=== PATIENT | female | born 1995 | race Caucasian/White ===

== ENCOUNTER 2021-09-10 12:38 | Emergency (ER) | payer OTHER, SELFPAY ==
--- NOTE | ~2021-09-10 | XR_ITS ---
EXAMINATION: XR forearm LT 2V DATE: 09/10/2021 13:02 INDICATION: Left forearm pain. Fall. TECHNIQUE: 2 views of left forearm were obtained. COMPARISON: None. FINDINGS: There is a fracture of radial head with up to 2 mm impaction of the radial 2/3 of the artic ular surface. Joint spaces are normal. IMPRESSION: 1. Radial head fracture. Reviewed, dictated and finalized at location A. MAKER COMPANION IMPRESSION: 1. Radial head fracture.
--- NOTE | ~2021-09-10 | XR_ITS ---
EXAMINATION: XR wrist LT min 3V DATE: 09/10/2021 13:02 INDICATION: Left forearm pain. Fall on ice. TECHNIQUE: 4 views of left wrist were obtained. COMPARISON: None. FINDINGS: Bone alignment is normal. No fracture. Joint spaces are well maintained. IMPRESSION: 1. Normal left wrist. Reviewed, dictated and finalized at location A. ER CARE SOCIAL WORKER IMPRESSION: 1. Normal left wrist.
--- NOTE | 2021-09-10 12:52 | ED.UPPEXIN ---
HPI - Extremity Injury (Upper) General Chief Complaint: Extremity Injury, Upper Stated Complaint: left wrist and arm injury Time Seen by Provider: 09/10/21 13:18 Source: patient and RN notes reviewed Mode of arrival: ambulatory Limitations: no limitations History of Present Illness HPI narrative: 26-year-old female presents concern for left wrist and elbow pain. Reports she slipped on the ice just prior to arrival catching herself with her left upper extremity. Reports upper arm pain 7/10. Denies decreased sensation, strength or range of motion in the left hand. MD complaint: injury to: left and elbow Related Data Home Medications Medication Instructions Recorded Confirmed bupropion HCl [Wellbutrin] 100 mg PO BID 09/10/21 09/10/21 buspirone [BuSpar] 5 mg PO BID 09/10/21 09/10/21 meloxicam 7.5 mg PO DAILY 09/10/21 09/10/21 Allergies Allergy/AdvReac Type Severity Reaction Status Date / Time No Known Allergies Allergy Verified 09/10/21 12:56 Review of Systems Review of Systems: CONSTITUTIONAL: Denies malaise, chills, sweats, or fever. CARDIOVASCULAR: Denies chest pain, palpitations, or edema. RESPIRATORY: Denies cough or dyspnea. SKIN: Denies rash or itching, bruising, redness MUSCULOSKELETAL: Reports left arm pain, swelling NEUROLOGIC: Denies numbness, weakness All systems reviewed & are unremarkable except as noted in HPI and below PMFSH Comments At time of signature, agree with nursing past medical, surgical, social and family history. There is no relevant family history pertinent to the presenting complaint Exam Narrative: GENERAL: Well-appearing, well-nourished, and in no acute distress. HEAD: Normocephalic, atraumatic. EYES: PERRLA, conjunctivae clear NECK: Supple. CHEST: Speaks in full sentences. No respiratory distress. HEART: Regular rate and rhythm. Normal and equal peripheral pulses. EXTREMITIES: Left upper extremity has grossly normal sensation, limited range of motion. Mild elbow edema, no ecchymosis. 5/5 strength with wrist and digit flexion and extension. Normal sensation with sensitivity to light touch and pain. Elbow tenderness. No open wounds, no skin tenting, no devitalized tissue or atrophy, no trophic changes, no obvious deformity, alignment normal, nearby joints and structures intact. Distal pulses palpable and equal bilaterally, skin warm, dry, pink. Capillary refill less than 3 seconds. SKIN: Warm, dry, no rash. NEURO: Alert and oriented x3. PSYCH: Normal mood and affect Course Course Emergency Course: Patient is aware of diagnosis, understands and agrees to treatment plan. Anticipatory guidance given. Patient agrees to follow-up as directed and is aware of reasons to seek care at the emergency department. Portions of this record may have been created with voice recognition software Level of Care: Express Care Visit Vital Signs Vital signs: Reviewed. Procedures Orthopedic Splinting/Casting Injury #1: Splinting/Casting Date: 09/10/21 Splinting/Casting Time: 13:31 Side: left Upper Extremity Injury Location: elbow Splint: customized in ED OCL: long arm Pre-Procedure Neuro Vascular Exam: normal Post-Procedure Neuro Vascular Exam: normal Other Orthopedic Equipment: other (sling) Additional Comments: Splint applied by satellite installation technician MDM - Extremity Injury (Upper) MDM Narrative Medical decision making narrative: Patients injury and pain is consistent with musculoskeletal etiology. No signs of neurological or vascular compromise on exam. Compartments and tissues are soft without signs of compartment syndrome. Pain is felt appropriate for further evaluation on an outpatient basis. Differential Diagnosis Differential diagnosis: Likely sprain and strain of wrist, fracture of wrist, fracture of humerus and other (Radial fracture) Imaging Data Radiologist's impression: EXAMINATION: XR wrist LT min 3V DATE: 09/10/2021 13:02 INDICATION
[2021-09-10 12:54] VITALS: BP 125/76; PULSE 97; RESP 16; TEMP 36.9; O2SAT 100
== END 2021-09-10 13:40 | disposition home or self-care (01) ==
PROVIDERS: Emergency Provider Nurse Practitioner; PCP Family Medicine
DX: S52.125A Nondisplaced fracture of head of left radius, initial encounter for closed fracture (principal); W00.0XXA Fall on same level due to ice and snow, initial encounter
CPT/HCPCS: 29105; 73090; 73110; 99214; A4565; G0463

== ENCOUNTER 2022-07-06 06:37 | Observation (INO) | payer OTHER, SELFPAY ==
[2022-07-06] VITALS (21 sets, daily range): BP systolic 94–122; BP diastolic 44–80; PULSE 86–114; RESP 16; TEMP 36.6–37.1; BMI 26.6
--- NOTE | ~2022-07-06 | US_ITS ---
US OB limited 07/06/2022 08:07 Indication: Vaginal spotting. Placental check. Procedure: High-resolution Limited obstetrical ultrasound Comparison: No prior studies for comparison. Findings: There is a single living intrauterine in breech presentation. Placenta is anterio r and low lying measuring 3.4 cm to the cervix. No evidence for placenta previa. The placenta is corbin sly normal, without suggestion of placenta abruption. However, ultrasound is not diagnostic of abrup tion since acute hemorrhage can be isoechoic to be placenta. Recommend clinical correlation. Amnioti c fluid is subjectively normal. Impression: 1: Single living intrauterine in breech presentation. 2: Anterior low lying placenta measuring 3.4 cm to the cervix. No evidence for placenta previa or abr uption. Reviewed, dictated and finalized at location A. Impression: 1: Single living intrauterine in breech presentation. 2: Anterior low lying placenta measuring 3.4 cm to the cervix. No evidence for placenta previa or abruption.
--- NOTE | 2022-07-06 07:07 | OBADM ---
This patient, Nandini Reynolds, admitted to the OB room 113 for observation for vaginal spotting. Patient/family oriented to hospital policies and general routines including ID bracelet, bed and alarms, visiting hours, pain management, procedures, bathroom and other care routines, personal items, smoking policy, room service/diet, and visiting hours. Patient/Family are encouraged to report perceived risks to care and to ask questions if they do not understand what they are told or what they should do.
--- NOTE | 2022-07-06 08:42 | PM.IMHP ---
H&P: HPI History of Present Illness Date/Time: 07/06/22 08:42 Chief Complaint: vaginal bleeding Narrative: 27-year-old 1 at 29 weeks gestation presenting for vaginal bleeding. She has had some cramping and some vaginal bleeding. She has a history of placenta previa and low-lying placenta. There was allegedly some resolution of the low-lying placenta. Was measured at [address] from the internal os 1 week ago. She is not feeling any pressure or contractions per se. She denies any nausea, vomiting, fever, chills. She denies any chest pain shortness of breath. Review of Systems Review of Systems: All systems reviewed & are unremarkable except as noted in HPI and below Constitutional: Constitutional: Denies chills, Denies fatigue, Denies fever(s) and Denies weakness Eyes: Eyes: Denies blurry vision, Denies change in vision, Denies loss of peripheral vision, Denies loss of vision, Denies other visual disturbances and Denies eye pain ENT: Denies vertigo, Denies dizziness, Denies hearing loss, Denies mouth pain, Denies nasal obstruction, Denies neck mass and Denies neck pain Cardiovascular: Cardiovascular: Denies chest pain, Denies diaphoresis, Denies syncope, Denies leg edema and Denies dyspnea Respiratory: Respiratory: Denies chest congestion, Denies cough, Denies hemoptysis, Denies dyspnea and Denies wheezing Gastrointestinal: Gastrointestinal: Denies abdominal pain, Denies constipation, Denies diarrhea, Denies nausea and Denies vomiting Genitourinary: Genitourinary: Denies hematuria, Denies change in libido, Denies nocturia, Denies genital lesions, Denies flank pain and Denies urinary urgency Musculoskeletal: Musculoskeletal: Denies abnormal gait, Denies back pain, Denies myalgias, Denies arthralgias, Denies joint swelling, Denies muscle weakness and Denies neck pain Integumentary/Breasts: Skin/Breast: Denies swelling, Denies breast pain, Denies breast mass, Denies dry skin, Denies nipple discharge, Denies unusual bruising and Denies jaundice Neurologic: Denies Neuro-related abnormal movements, Denies Abnormal speech present, Denies abnormal gait, Denies behavioral changes, Denies confusion, Denies vertigo, Denies dizziness, Denies syncope, Denies loss of vision, Denies memory loss, Denies convulsions and Denies weakness Psychiatric: Psychiatric: Denies abnormal sleep pattern, Denies behavioral changes, Denies change in libido, Denies confusion, Denies depression, Denies anhedonia and Denies memory loss Endocrine: Endocrine: Reports no additional endocrine complaints, Denies change in libido and Denies fatigue Hematologic/Lymphatic: Hematologic/Lymphatic: Reports no additional hematologic/lymphatic complaints Allergic/Immunologic: Allergic/Immunologic: Reports no additional allergic/immunologic complaints and Denies wheezing Meds Home Medications and Allergies Home Medications Medication Instructions Recorded Confirmed Type ferrous sulfate 142 mg (45 mg 142 mg PO DAILY 07/06/22 07/06/22 History iron) tablet,extended release (Slow Fe) omeprazole 10 mg capsule,delayed 10 mg PO DAILY 07/06/22 07/06/22 History release vit no.95-ferrous 1 tablet PO DAILY 07/06/22 07/06/22 History fumarate 28 mg-folic acid 800 mcg tablet () Allergies Allergy/AdvReac Type Severity Reaction Status Date / Time No Known Allergies Allergy Verified 09/10/21 12:56 Vital Signs Vital Signs - 24 hr 07/06/22 07:06 07/06/22 07:06 07/06/22 07:07 Temperature 98.8 F Pulse Rate 111 H Respiratory Rate 16 Blood Pressure 116/68 Oxygen Delivery Room Air 07/06/22 07:15 07/06/22 07:30 Temperature Pulse Rate 108 H 104 H Respiratory Rate Blood Pressure 117/78 109/74 Oxygen Delivery Exam Const: General: cooperative, healthy appearing, comfortable and no acute distress; No confusion Orientation/consciousness: oriented to person, oriented to place, oriented to time and No con
[2022-07-06] MEDS: TERBUTALINE SULFATE 1 MG/ML VIAL 0.25 MG SUB-Q ×2 (09:58→15:55)
[2022-07-06 10:27] LABS: Appearance Urine Clear (Clear); Bilirubin Urine Negative (Negative); Blood Urine 2+ (Negative); Color Urine Yellow (Yellow); Glucose Urine UA Negative (Negative); Ketones Urine Negative (Negative); Leukocyte Esterase Ur Negative LEU/UL (Negative); Nitrate Urine Negative (Negative); Protein Urine Negative (Negative); Urobilinogen Urine 0.2 mg/dL (<2.0); pH Urine 6.5 (5.0-9.0)
[2022-07-06 10:37] LABS: Mucus Urine Rare /lpf; RBC Urine 0-2 /hpf (0-2); Squamous Epithelial Cell Urine Rare /hpf (Few); WBC Urine 0-3 /hpf
[2022-07-06 10:41] LABS: Add Urine Microscopic? YES
[2022-07-06] MEDS: NIFEdipine 30 MG TAB.ER.24 PO ×2 (13:00→16:32)
[2022-07-06] MEDS: ACETAMINOPHEN 500 MG TABLET 1000 MG PO (15:37)
[2022-07-07 04:58] VITALS: BP 115/72; PULSE 97; RESP 17; TEMP 36.2
[2022-07-07 06:30] VITALS: RESP 17; TEMP 36.5
[2022-07-07 06:38] VITALS: BP 120/66; PULSE 100
--- NOTE | 2022-07-07 07:16 | PC.NURSE ---
Patient ambulated to restroom and voided. No blood noted at this time.
--- NOTE | 2022-07-07 08:06 | PM.OBPNVD ---
OB - PN: Subj Subjective Date/time seen: 07/07/22 08:06 No perceptible contractions. Very small, light bleeding, said to be dark by nurses. Good movement. OB - PN: Obj Data Labs Labs: Laboratory Results - last 24 hr 07/06/22 10:17 Urine Color Yellow Urine Appearance Clear Urine pH 6.5 Ur Specific [place] 1.020 Urine Protein Negative Urine Glucose (UA) Negative Urine Ketones Negative Ur Blood (Man) 2+ H Urine Nitrate Negative Urine Bilirubin Negative Urine Urobilinogen 0.2 Leukocyte Esterase Rfl Negative Urine RBC 0-2 Urine WBC 0-3 Ur Squamous Epith Cells Rare Urine Mucus Rare Imaging Radiologist's impression: Impressions Obstetrics Ultrasound 07/06/22 08:36 Impression: 1: Single living intrauterine in breech presentation. 2: Anterior low lying placenta measuring 3.4 cm to the cervix. No evidence for placenta previa or abruption. OB - PN A/P Assessment and Plan (1) Low lying placenta with hemorrhage in third trimester, antepartum: Code(s): O44.53 - Low lying placenta with hemorrhage, third trimester Status: Acute Plan 27-year-old 1 at 29 weeks gestation with 3rd trimester bleeding and low-lying placenta. She has been franky and bleeding intermittently. There has been Resolution of bleeding and contractions. she has been observed for approximately 24 hours. She will be discharged with precautions. She will follow-up in the office today. Time Spent With Patient Time: Total time spent is greater than 50% in coordination of care (as documented) at patient's floor/unit and/or counseling patient: Exam Const: General: cooperative, healthy appearing, comfortable and no acute distress; No confusion Orientation/consciousness: oriented to person, oriented to place, oriented to time and No confusion HENMT: Head: normal to inspection Ears: external ears normal Face/Nose/Sinus: Normal external nose present and normal facial exam Face and sinus: normal facial exam Eyes: General: appearance normal, both eyes and all related structures Neck: Neck: normal visual inspection, trachea midline and supple Resp: Auscultation: clear to auscultation bilaterally, no crackles, no rales, no rhonchi and no wheezes Cardio: Rate: regular rate Rhythm: regular rhythm Heart sounds: no click, no murmurs and no rubs GI: GI Palp: No abdominal tenderness, No Soft to palpation, No Tenderness to palpation present (GI) and No Palpable mass present Auscultation: normal bowel sounds Skin: General skin exam: normal color and no rashes or lesions noted Neuro: General: oriented to person, oriented to place, oriented to time and No confusion Speech: No Abnormal speech present Extrem: General: normal to inspection, no joint enlargement, no clubbing, cyanosis or edema, no pedal edema and no calf tenderness Psych: Appearance: grossly normal Mental Status: mental status grossly normal Speech and movement: Normal speech and movement present
--- NOTE | 2022-07-07 08:21 | PC.NURSE ---
Dr. Cerda at bedside to discuss patient's plan of care. Discharge orders placed. Patient agrees with POC.
--- NOTE | 2022-08-01 10:59 | P.PNOB_ITS ---
OB - Triage/Final Diagnosis Visit Information Comments/Additional reasons for admission: I have assessed the risk for this patient, Nandini Reynolds, and determined that she would benefit from observation care. Evaluation Laboratory results: Laboratory Tests 07/06/22 10:17 Urine Color Yellow Urine Appearance Clear Urine pH 6.5 Ur Specific [place] 1.020 Urine Protein Negative Urine Glucose (UA) Negative Urine Ketones Negative Ur Blood (Man) 2+ H Urine Nitrate Negative Urine Bilirubin Negative Urine Urobilinogen 0.2 Leukocyte Esterase Rfl Negative Urine RBC 0-2 Urine WBC 0-3 Ur Squamous Epith Cells Rare Urine Mucus Rare Final Diagnosis (1) Low lying placenta with hemorrhage in third trimester, antepartum: Code(s): O44.53 - Low lying placenta with hemorrhage, third trimester Status: Acute
== END 2022-07-07 08:35 | disposition home or self-care (01) ==
PROVIDERS: Admitting Provider Obstetrics & Gynecology; PCP Family Medicine; Visit Provider Obstetrics & Gynecology
DX: O44.53 Low lying placenta with hemorrhage, third trimester (principal); Z3A.29 29 weeks gestation of pregnancy
CPT/HCPCS: 76815; 81001; 96372; A9270; G0378; G0379; J3105

== ENCOUNTER 2022-07-30 05:56 | Observation (INO) | payer OTHER, SELFPAY ==
[2022-07-30] VITALS (7 sets, daily range): BP systolic 118–124; BP diastolic 70–80; PULSE 74–82; RESP 16; TEMP 36.8–36.9; O2SAT 98–100; BMI 27.5
--- NOTE | ~2022-07-30 | US_ITS ---
US OB limited w BPP DATE: 07/30/2022 07:33 INDICATION: Evaluate well-being, placenta. Vaginal bleeding. TECHNIQUE: Real-time imaging and Doppler analysis COMPARISON: 08/02/2022 obstetrical ultrasound, limited FINDINGS: Live single intrauterine gestation, fetus in longitudinal lie, breech presentation with fet al heart rate of 149 bpm. Anterior placenta. Subjectively normal amount of amniotic fluid. BIOPHYSICAL PROFILE reported by field service technician poultry: breathin out of 2 movement: 2 out of 2 tone: 2 out of 2 Amniotic fluid pocket: 2 out of 2 Total score: 8 out of 8 IMPRESSION: Normal biophysical profile score of 8 out of 8 Breech presentation Reviewed, dictated and finalized at [facility]. Reviewed, dictated and finalized at location A. A CENTER SPECIALIST
--- NOTE | 2022-07-30 06:15 | PC.NURSE ---
At 0609, I spoke with Dr. Urban regarding patient's bleeding. Verbal orders received for NST, BPP, and ultrasound for wellbeing and placenta.
--- NOTE | 2022-07-30 06:19 | LDADM ---
This patient, Nandini Reynolds, was admitted to OB Post 117 on 07/30/22 at 05:56. Plans for labor, pain management and were discussed with patient. Patient/family oriented to hospital policies and general routines including ID bracelet, bed and alarms, visiting hours, pain management, procedures, bathroom and other care routines, personal items, smoking policy, room service/diet and guest tray routines, infant security routines, and visiting hours. Patient/Family are encouraged to report perceived risks to care and to ask questions if they do not understand what they are told or what they should do. See OBIX for further documentation.
--- NOTE | 2022-07-30 08:59 | PC.NURSE ---
Spoke with Dr. Urban at 0850 regarding patient's ultrasound results. Dr. Urban coming in to perform speculum exam.
--- NOTE | 2022-07-30 09:55 | PC.NURSE ---
Dr. Urban at bedside. Sterile speculum exam performed. No source of bleeding found. Cervical exam performed. Cervix is closed and 60% effaced. Orders to keep patient overnight to monitor bleeding, receive Celestone injections x2, and FFN test tomorrow (07/31/22) at 0945. Patient has no questions at this time.
--- NOTE | 2022-07-30 09:59 | PM.IMHP ---
H&P: HPI History of Present Illness Date/Time: 07/30/22 09:59 Chief Complaint: bleeding Narrative: Nandini is a 27yo G1 at 32.6 who presented with an episode of BRB that soaked a pantiliner. NO intercourse or strenuous activity. Now just some mucousy bloody discharge overnight. Denies contractions, leaking, pain. Normal FM. She previously had marginal previa, then low lying placenta, which resolved weeks ago. She had another episode of bleeding that was associated with contractions she did not feel and she was on procardia for a while, is not anymore. NO contractions on toco or palpated by RN or noted by pt overnight. her is compicated by anxiety and anemia. Review of Systems Review of Systems: All systems reviewed & are unremarkable except as noted in HPI and below Meds Home Medications and Allergies Home Medications Medication Instructions Recorded Confirmed Type ferrous sulfate 142 mg (45 mg 142 mg PO DAILY 07/06/22 07/30/22 History iron) tablet,extended release (Slow Fe) omeprazole 10 mg capsule,delayed 10 mg PO DAILY 07/06/22 07/30/22 History release vit no.95-ferrous 1 tablet PO DAILY 07/06/22 07/30/22 History fumarate 28 mg-folic acid 800 mcg tablet () Allergies Allergy/AdvReac Type Severity Reaction Status Date / Time No Known Allergies Allergy Verified 07/30/22 06:22 Vital Signs Vital Signs - 24 hr 07/30/22 06:05 07/30/22 06:06 07/30/22 06:11 Temperature 98.5 F Pulse Rate 78 Respiratory Rate 16 Blood Pressure 124/80 Pulse Oximetry 98 100 100 Oxygen Delivery 07/30/22 06:16 07/30/22 06:19 Temperature Pulse Rate Respiratory Rate Blood Pressure Pulse Oximetry 100 Oxygen Delivery Room Air Exam Const: General: no acute distress Resp: Effort & Inspection: normal respiratory effort Auscultation: clear to auscultation bilaterally Cardio: Rate: regular rate Rhythm: regular rhythm GI: GI Palp: Yes Soft to palpation Other: nontender, gravid : Other: on SSE, some bloody mucus present in vault and cleared out with swabs. cervix visually closed but appears soft. Not friable. digitally cervix 0-0.5/60/-3 Extrem: General: normal to inspection Assessment and Plan Assessment and plan (1) Antepartum bleeding, third trimester: Code(s): O46.93 - Antepartum hemorrhage, unspecified, third trimester Status: Acute Plan cervix closed, but soft and effaced. given bleeding, with normal US and no other cause of bleeding found, moderately concerned for potential for labor. Will do celestone, monitor bleeding in house, and do FFN tomorrow am. Discussed POC with pt and . Questions answered, support given. FHT category 1, NST q shift unless new episode of bleeding. IV start if new episode of bleeding.
[2022-07-30] MEDS: BETAMETHASONE SOD PHOS/ACETATE 30 MG/5 ML VIAL 12 MG IM (10:06)
[2022-07-30] MEDS: DOCUSATE SODIUM 100 MG CAPSULE PO (12:02)
[2022-07-30] MEDS: ACETAMINOPHEN 500 MG TABLET 1000 MG PO ×2 (12:02→18:22)
[2022-07-31] VITALS (7 sets, daily range): BP systolic 114–121; BP diastolic 66–77; PULSE 77–85; TEMP 36.7; O2SAT 95
--- NOTE | 2022-07-31 09:06 | PM.OBPNVD ---
OB - PN: Subj Subjective Date/time seen: 07/31/22 09:06 Narrative: NO active bleeding since episode night before last. brown/pink spotting only. no contractions, mild back pain. baby moving well. OB - PN A/P Assessment and Plan (1) Antepartum bleeding, third trimester: Code(s): O46.93 - Antepartum hemorrhage, unspecified, third trimester Status: Acute Plan second celestone today FFN today if pos, will check cervix, if same may DC home. discussed POC with pt. FHT category 1 Time Spent With Patient Time: Total time spent is greater than 50% in coordination of care (as documented) at patient's floor/unit and/or counseling patient: Exam Const: General: no acute distress Resp: Effort & Inspection: normal respiratory effort GI: Inspection: normal to inspection Other: nontender, gravid, soft
[2022-07-31] MEDS: BETAMETHASONE SOD PHOS/ACETATE 30 MG/5 ML VIAL (09:58)
[2022-07-31 10:50] LABS: Fetal Fibronectin Positive
--- NOTE | 2022-07-31 10:55 | PC.NURSE ---
Dr Urban notified of positive FFN. Will be over to check patient around noon.
--- NOTE | 2022-08-02 07:16 | PM.OBTRLD ---
OB - Triage/Final Diagnosis Visit Information Comments/Additional reasons for admission: I have assessed the risk for this patient, Nandini Reynolds, and determined that she would benefit from observation care. Evaluation Laboratory results: Laboratory Tests 07/31/22 09:56 Fibronectin Positive Final Diagnosis (1) Antepartum bleeding, third trimester: Code(s): O46.93 - Antepartum hemorrhage, unspecified, third trimester Status: Acute
== END 2022-07-31 13:04 | disposition home or self-care (01) ==
PROVIDERS: Admitting Provider Obstetrics & Gynecology; PCP Family Medicine; Visit Provider Obstetrics & Gynecology
DX: O46.93 Antepartum hemorrhage, unspecified, third trimester (principal); Z3A.32 32 weeks gestation of pregnancy
CPT/HCPCS: 59025; 76815; 76819; 82731; 96372; A9270; G0378; G0379; J0702

== ENCOUNTER 2022-08-07 14:13 | Inpatient (IN) | payer OTHER, SELFPAY ==
[2022-08-07 14:58] VITALS: BP 128/81; PULSE 95
--- NOTE | 2022-08-07 15:17 | OBADM ---
This patient, Nandini Reynolds, admitted to the OB room OB Post 113 for observation. Patient/family oriented to hospital policies and general routines including ID bracelet, bed and alarms, visiting hours, pain management, procedures, bathroom and other care routines, personal items, smoking policy, room service/diet, and visiting hours. Patient/Family are encouraged to report perceived risks to care and to ask questions if they do not understand what they are told or what they should do.
--- NOTE | 2022-08-07 15:21 | PC.NURSE ---
Pt here for extended monitoring. Pt has been evaluated recently for bleeding and had an ultrasound in the office today which showed a partial abruption, per Dr. Urban. Pt states she was in 07/06 with bleeding, more than spotting with contractions. She was given procardia and terbutaline. She was here overnight and sent home with a procardial prescription. Also, had a history of low lying placenta at that time. 07/26 she had an OB appt. It was noted on ultrasound she no longer had a low lying placenta and Dr. Urban stopped her procardia prescription, telling her she didn't think she was having contractions. On one of these visits to the hospital she was also given celestone. 07/30 she was back in the hospital with bleeding and stayed over night. 08/06 she started spotting and thought she was having some contractions. She stated she didn't think she was having many contractions. Stated she had some spotting this morning. She has some low back pain. Currently does not have any spotting upon admission. Denies feeling contractions although they are on the monitor. She also has not eaten since breakfast. She also stated the baby is breech.
--- NOTE | 2022-08-07 19:07 | PC.NURSE ---
[address] Urban updated on patient status. [facility] reviewed. Orders received for Colace BID per patient request. Will continue to monitor and call if bright red vaginal bleeding or contractions or any other concerns. Antoinette Grewal RN
[2022-08-07] MEDS: DOCUSATE SODIUM 100 MG CAPSULE PO (21:07)
[2022-08-07 21:09] VITALS: BP 128/77; PULSE 78; TEMP 38.1
[2022-08-07] MEDS: ACETAMINOPHEN 500 MG TABLET 1000 MG PO (21:09)
--- NOTE | 2022-08-07 21:24 | PC.NURSE ---
[id number] Urban. Updated on pt status, pt currently with temp of 100.4. Tylenol 1000mg PO given. No new orders received. Will continue to monitor and call if questions or concerns or temp greater than 100.[address] Urban. Antoinette Grewal RN
[2022-08-07 22:06] VITALS: TEMP 37.5
--- NOTE | 2022-08-07 23:08 | PC.NURSE ---
[id number] Urban [facility] reviewed. Order received to insert IV, LR at 100mL/hr continuous. Will continue to monitor, will call with questions or concerns. Antoinette Grewal RN
[2022-08-07] MEDS: LACTATED RINGERS 1,000 ML 100 ML IV CONT (23:30)
[2022-08-08] VITALS (7 sets, daily range): BP systolic 122–136; BP diastolic 74–86; PULSE 63–86; RESP 18; TEMP 37.2–37.4
--- NOTE | 2022-08-08 08:39 | PM.IMHP ---
H&P: HPI History of Present Illness Date/Time: 08/08/22 08:39 Chief Complaint: bleeding in third trimester Narrative: Nandini is a 27yo G1 at 34.1 admitted yesterday for another episode of light bleeding in third trimester. Previously admitted for 1-2 days twice before with bleeding more than spotting but still light. Received celestone at 32+ weeks. On US yesterday in the office 4x2cm abruption was seen and she was admitted for observation. Overnight she had a few small variables and one larger one but otherwise reactive tracing. This morning at 0700 she passed a lemon sized clot and bleeding picked up some. It was brighter red and a little more than spotting. Currently she is complaining of lower abdominal cramping. Review of Systems Review of Systems: All systems reviewed & are unremarkable except as noted in HPI and below Meds Home Medications and Allergies Home Medications Medication Instructions Recorded Confirmed Type ferrous sulfate 142 mg (45 mg 142 mg PO DAILY 07/06/22 08/07/22 History iron) tablet,extended release (Slow Fe) omeprazole 10 mg capsule,delayed 10 mg PO DAILY 07/06/22 08/07/22 History release vit no.95-ferrous 1 tablet PO DAILY 07/06/22 08/07/22 History fumarate 28 mg-folic acid 800 mcg tablet () docusate sodium 100 mg capsule 100 mg PO BID 08/07/22 08/07/22 History (Colace) Allergies Allergy/AdvReac Type Severity Reaction Status Date / Time No Known Allergies Allergy Verified 07/30/22 06:22 Vital Signs Vital Signs - 24 hr 08/07/22 14:58 08/07/22 21:09 08/07/22 22:06 Temperature 100.5 F H 99.5 F Pulse Rate 95 78 Blood Pressure 128/81 128/77 08/08/22 04:02 08/08/22 04:00 Temperature 99 F Pulse Rate 69 Blood Pressure 131/78 Exam Const: General: no acute distress Resp: Effort & Inspection: normal respiratory effort Auscultation: clear to auscultation bilaterally Cardio: Rate: regular rate Rhythm: regular rhythm GI: Other: gravid, uterus soft, mild tenderness lower uterus Extrem: General: normal to inspection Psych: Mental Status: mental status grossly normal Affect: normal affect Assessment and Plan Assessment and plan (1) Placental abruption in third trimester: Code(s): O45.93 - Premature separation of placenta, unspecified, third trimester Status: Acute Plan s/p celestone IV in place CBC this am monitor bleeding, status, maternal pain, contractions to determine delivery timing baby has been breech- CS for delivery Discussed POC with pt and and RN
[2022-08-08 08:52] LABS: Hematocrit 36.1 % (37.0-47.0); Hemoglobin 12.1 g/dL (12.0-15.0); Mean Corpuscular HGB Conc 33.5 g/dl (32-36); Mean Corpuscular Hemoglobin 32.2 pg (26-34); Mean Platelet Volume 12.1 fl (7.4-10.4); Platelet Count Result 201 k/mm3 (150-375); Red Blood Count 3.76 M/mm3 (4.2-5.4); Red Cell Distribution Width 13.7 % (11.5-14.5); White Blood Count 14.6 K/mm3 (4.5-10.0)
[2022-08-08] MEDS: ACETAMINOPHEN 500 MG TABLET 1000 MG (16:14)
--- NOTE | 2022-08-08 19:36 | PC.NURSE ---
1930 milvia sized clot when voiding
[2022-08-09] VITALS (9 sets, daily range): BP systolic 119–139; BP diastolic 78–90; PULSE 63–80; RESP 16–18; TEMP 37.1–37.8; O2SAT 98; BMI 27.5
--- NOTE | 2022-08-09 00:23 | PC.NURSE ---
08/08/221829 Dr. Urban at the bedside. Discussed plan of care with pt. Antoinette Grewal RN
--- NOTE | 2022-08-09 02:41 | PC.NURSE ---
[address] Urban. Updated on pt status. Pt called out stating that she passed a clot. Bright red bleeding noted on toilet paper and [id number] clot in urine hat. No new orders received, will continue to monitor pt and call if questions or concerns. Antoinette Grewal RN
[2022-08-09] MEDS: ACETAMINOPHEN 500 MG TABLET 1000 MG PO ×2 (03:39→21:48)
--- NOTE | 2022-08-09 08:09 | PM.OBPNLAB ---
Pain Control Date/time seen: 08/09/22 08:09 Comments: Doing well this morning. One clot overnight, some light spotting this am. One episode of light cramping overnight. Good FM. Pelvic Exam Comments: Exam: abdomen gravid, mild tenderness BLQ Status Comments: FHT intermittently category 1 with accels and periodically minimal variability without accels. No decels. Assessment and Plan Comments: T and S continuous monitoring except for shower s/p steroids repeat US for size of abruption on Sunday repeat CBC Sunday Deliver 36w unless indicated sooner based on status, increased bleeding, increased tenderness/contractions, or larger size of abruption POC discussed with pt, , RN
--- NOTE | 2022-08-09 19:53 | PC.NURSE ---
1944: Patient told RN when she went to the bathroom she had more bleeding in the toilet and on her pad. RN observed patient's bleeding. Blood covered about 1/3 of the pad. No clots were observed. Patient was instructed to call RN to bedside the next time she uses the restroom in order for RN to observe blood loss.
[2022-08-09] MEDS: LACTATED RINGERS 1,000 ML 100 ML IV CONT (21:28)
--- NOTE | 2022-08-09 22:00 | PC.NURSE ---
1943: Patient called out for bleeding. One small clot on the pad was observed with no other blood on the pad. 2014: Dr. Cerda was notified via telephone about patients bleeding. Patient's history, bleeding, clots, contraction pattern of every 1-2 min, temp of 99.3, and baby's FHT were reported on. Orders for Procardia XL now were obtained. 2034: RN informed Dr. Cerda that the patient's contractions have stopped. Uterine irritability was reported. Orders to hold off on giving Procardia XL at this time. 2047: Patient called out for bleeding. RN weighed patient's pad that consisted of blood and 1 medium size clot. Blood loss of 25 cc at the time. RN let patient know that we would be back in 15 min to check her pad and bleeding. 2104: RNs at bedside to weight pad. Pad weighed 7cc with no clots 2116: Dr. Cerda was notified of patient'd blood loss of 83 cc in the last hours and a half. Dr. Cerda was updated that patient is still bleeding bright red blood, has back pain, and is still passing some clots. Patient was put on bedrest for the night. Orders for a bedpan and IV fluids were obtained. 2214: Patient called out for bleeding. RN observed pink bloody urine in bed mckenna with a 7 cc clot.
[2022-08-10] VITALS (40 sets, daily range): BP systolic 125–161; BP diastolic 72–96; PULSE 57–86; RESP 11–18; TEMP 36.5–37.6; O2SAT 100
[2022-08-10] MEDS: LACTATED RINGERS 1,000 ML 100 ML IV CONT (06:50)
[2022-08-10] MEDS: ACETAMINOPHEN 500 MG TABLET 1000 MG PO (07:03)
--- NOTE | 2022-08-10 08:16 | PM.OBPNVD ---
OB - PN: Subj Subjective Date/time seen: 08/10/22 08:16 Observe contractions last night accompanying with significant bleeding. Was her longest and largest bleeding episode yet. Contractions resolved after about an hour and a half to 2 hours. She has been stable all night since that episode at about 2200, but passed another clot this morning at 7:00 a.m.. No irritability the uterus or contractions at this time. OB - PN: Obj Data Labs 08/08/22 08:45 Labs: Laboratory Results - last 24 hr 08/09/22 07:54 Blood Type A Positive Antibody Screen Negative OB - PN A/P Assessment and Plan (1) Placental abruption in third trimester: Code(s): O45.93 - Premature separation of placenta, unspecified, third trimester Status: Acute (2) Antepartum bleeding, third trimester: Code(s): O46.93 - Antepartum hemorrhage, unspecified, third trimester Status: Acute Plan 27-year-old female at 34 weeks gestation with placental abruption with uterine irritability and contractility. She had recently the episode of franky and bleeding. She has settled at this time. To continue observation and admission. To deliver for unremitting bleeding in contractions. Status post steroids. No tocolytics. Time Spent With Patient Time: Total time spent is greater than 50% in coordination of care (as documented) at patient's floor/unit and/or counseling patient: Exam Const: General: healthy appearing, comfortable and no acute distress Resp: Auscultation: clear to auscultation bilaterally, no rales, no rhonchi and no wheezes Cardio: Rate: regular rate Heart sounds: no click, no murmurs and no rubs GI: Inspection: non-distended Auscultation: normal bowel sounds Extrem: General: normal to inspection, no pedal edema and no calf tenderness
[2022-08-10 11:15] LABS: Basophils Percent Auto 0.3 % (0.2-1.2); Eosinophils Absolute Auto 0.1 K/mm3 (0-0.3); Hematocrit 31.5 % (37.0-47.0); Immature Granulocyte Absolute 0.08 K/mm3 (0.00-0.031); Immature Granulocyte Percent A 0.7 % (0-0.5); Lymphocytes Absolute Auto 1.47 K/mm3 (0.9-3.2); Lymphocytes Percent Auto 12.6 % (18.3-44.2); Mean Corpuscular HGB Conc 34.9 g/dl (32-36); Mean Corpuscular Hemoglobin 32.7 pg (26-34); Mean Corpuscular Volume 93.8 fl (80-100); Mean Platelet Volume 11.9 fl (7.4-10.4); Monocytes Absolute Auto 0.6 K/mm3 (0.1-0.6); Monocytes Percent Auto 5.2 % (2.6-8.5); Neutrophils Absolute Auto 9.4 K/mm3 (1.3-6.7); Neutrophils Percent Auto 80.2 % (45.5-73.1); Platelet Count Result 199 k/mm3 (150-375); Red Blood Count 3.36 M/mm3 (4.2-5.4); Red Cell Distribution Width 13.2 % (11.5-14.5); White Blood Count 11.7 K/mm3 (4.5-10.0)
[2022-08-10 11:21] LABS: Alanine Aminotransferase 14 U/L (6-35); Alkaline Phosphatase 154 U/L (38-126); Anion Gap 5 mmol/L (8-16); Aspartate Amino Transferase 22 U/L (14-36); Bilirubin,Total 0.3 mg/dL (0.2-1.3); Blood Urea Nitrogen 8 mg/dL (7-17); Calcium 8.2 mg/dL (8.4-10.2); Carbon Dioxide 23 mmol/L (22-30); Chloride 106 mmol/L (98-107); Estimated CRCL calculation 119 ml/min; Estimated Glomerular Filt Rate > 60; Glucose 90 mg/dL (65-110); Potassium 4.1 mmol/L (3.4-5.0); Sodium 134 mmol/L (137-145); Uric Acid 5.8 mg/dL (2.5-7.5)
[2022-08-10 11:31] LABS: Total Protein Urine Random 97 mg/dL; Ur Ttl Prot Creatinine Ratio 1.07 mg/mg (0-0.20)
--- NOTE | 2022-08-10 11:31 | PC.NURSE ---
1055--Report to Dr. Cerda re: v.s., orders received for PIH workup and straight cath for urine.
[2022-08-10 11:39] LABS: Appearance Urine Clear (Clear); Bilirubin Urine Negative (Negative); Blood Urine Trace-intact (Negative); Color Urine Yellow (Yellow); Glucose Urine UA Negative (Negative); Ketones Urine Negative (Negative); Leukocyte Esterase Ur Negative LEU/UL (NEGATIVE); Nitrate Urine Negative (Negative); Protein Urine 2+ mg/dL (Negative); Urobilinogen Urine 0.2 mg/dL (<2.0)
--- NOTE | 2022-08-10 11:52 | PC.NURSE ---
1150--Report labs to Dr. Cerda, states he is coming over to speak with pt. and will do c/s.
[2022-08-10 11:56] LABS: RBC Urine 0-2 /hpf (0-2); Squamous Epithelial Cell Urine Few /hpf (Few); Transitional Epi Cells Urine Rare /hpf (None Seen); WBC Urine 0-3 /hpf (0-3)
[2022-08-10 12:03] LABS: Add Urine Microscopic? YES
--- NOTE | 2022-08-10 13:29 | WPDANESEPPF ---
Anes - Initial Pre Proc Eval Procedure: Operation Date: 08/10/22 13:00 Proposed Procedures p Section - Maria Dolores Cerda MD Date/Time: 08/10/22 13:29 Surgeon: Antonia Urban MD Pre Op Diagnosis: Partial Abruption Patient Data Age: 27 Gender: F Height: 1.65 m Weight: 75 kg Last Vital Signs Temp 37.3 C 08/10/22 06:24 Pulse 78 08/10/22 13:00 Resp 16 08/10/22 02:00 BP 151/96 H 08/10/22 13:00 Pulse Ox 98 08/09/22 19:39 Allergies Allergy/AdvReac Type Severity Reaction Status Date / Time No Known Allergies Allergy Verified 08/09/22 16:02 Home Medications Medication Instructions Recorded Confirmed Type ferrous sulfate 142 mg (45 mg 142 mg PO DAILY 07/06/22 08/07/22 History iron) tablet,extended release (Slow Fe) omeprazole 10 mg capsule,delayed 10 mg PO DAILY 07/06/22 08/07/22 History release vit no.95-ferrous 1 tablet PO DAILY 07/06/22 08/07/22 History fumarate 28 mg-folic acid 800 mcg tablet () docusate sodium 100 mg capsule 100 mg PO BID 08/07/22 08/07/22 History (Colace) Laboratory Tests 08/10/22 08/10/22 08/10/22 11:01 11:01 11:01 WBC 11.7 K/mm3 H K/mm3 (4.5-10.0) RBC 3.36 M/mm3 L M/mm3 (4.2-5.4) Hgb 11.0 g/dL L g/dL (12.0-15.0) Hct 31.5 % L % (37.0-47.0) MCV 93.8 fl fl (80-100) MCH 32.7 pg pg (26-34) MCHC 34.9 g/dl g/dl (32-36) RDW 13.2 % % (11.5-14.5) Plt Count 199 k/mm3 k/mm3 (150-375) MPV 11.9 fl H fl (7.4-10.4) Immature Gran % (Auto) 0.7 % H % (0-0.5) Neut % (Auto) 80.2 % H % (45.5-73.1) Lymph % (Auto) 12.6 % L % (18.3-44.2) [place] % (Auto) 5.2 % % (2.6-8.5) Eos % (Auto) 1.0 % % (0-4.4) Baso % (Auto) 0.3 % % (0.2-1.2) Lymph # (Auto) 1.47 K/mm3 K/mm3 (0.9-3.2) [place] # (Auto) 0.6 K/mm3 K/mm3 (0.1-0.6) Eos # (Auto) 0.1 K/mm3 K/mm3 (0-0.3) Baso # (Auto) 0.0 K/mm3 K/mm3 (0.0-0.1) Abs Immat Gran (auto) 0.08 K/mm3 H K/mm3 (0.00-0.031) Absolute Neuts (auto) 9.4 K/mm3 H K/mm3 (1.3-6.7) Absolute Nucleated RBC 0.0 K/mm3 K/mm3 (0.0-0.012) Nucleated RBC % 0.0 % % (0.0-0.2) Sodium 134 mmol/L L mmol/L (137-145) Potassium 4.1 mmol/L mmol/L (3.4-5.0) Chloride 106 mmol/L mmol/L (98-107) Carbon Dioxide 23 mmol/L mmol/L (22-30) Anion Gap 5 mmol/L L mmol/L (8-16) BUN 8 mg/dL mg/dL (7-17) Creatinine 0.60 mg/dL L mg/dL (0.7-1.0) Estim Creat Clear Calc 119 ml/min ml/min Estimated GFR > 60 (59 - ) Glucose 90 mg/dL mg/dL (65-110) Uric Acid 5.8 mg/dL mg/dL (2.5-7.5) Calcium 8.2 mg/dL L mg/dL (8.4-10.2) Total Bilirubin 0.3 mg/dL mg/dL (0.2-1.3) AST 22 U/L U/L (14-36) ALT 14 U/L U/L (6-35) Alkaline Phosphatase 154 U/L H U/L (38-126) Total Protein 6.0 g/dL L g/dL (6.3-8.2) Albumin 3.0 g/dL L g/dL (3.5-5.1) Urine Color Yellow (Yellow) Urine Appearance Clear (Clear) Urine pH 7.0 (5.0-9.0) Ur Specific [place] 1.020 (1.001-1.035) Urine Protein 2+ mg/dL H mg/dL (Negative) Urine Glucose (UA) Negative mg/dL mg/dL (Negative) Urine Ketones Negative mg/dL mg/dL (Negative) Ur Blood (Man) Trace-intact (Negative) Urine Nitrate Negative (Negative) Urine Bilirubin Negative (Negative) Urine Urobilinogen 0.2 mg/dL mg/dL (<2.0) Ur Leukocyte Esterase Negative TIKI/UL TIKI/UL (NEGATIVE) Urine RBC 0-2 /hpf /hpf (0-2) Urine WBC 0-3 /hpf /hpf (0-3) Ur Squamous Epith Cells Few /hpf /hpf (Few) Ur Transiti
--- NOTE | 2022-08-10 13:36 | PM.OBPNVD ---
OB - PN: Subj Subjective Date/time seen: 08/10/22 13:36Patient reports intermittent contractions. Continued intermittent bleeding. No headache or blurry vision. No epigastric pain. No nausea, vomiting, fever, chills. No chest pain or shortness of breath. OB - PN: Obj Data Labs 08/10/22 11:01 08/10/22 11:01 Labs: Laboratory Results - last 24 hr 08/10/22 08/10/22 08/10/22 11:01 11:01 11:01 WBC 11.7 H RBC 3.36 L Hgb 11.0 L Hct 31.5 L MCV 93.8 MCH 32.7 MCHC 34.9 RDW 13.2 Plt Count 199 MPV 11.9 H Immature Gran % (Auto) 0.7 H Neut % (Auto) 80.2 H Lymph % (Auto) 12.6 L [place] % (Auto) 5.2 Eos % (Auto) 1.0 Baso % (Auto) 0.3 Lymph # (Auto) 1.47 [place] # (Auto) 0.6 Eos # (Auto) 0.1 Baso # (Auto) 0.0 Abs Immat Gran (auto) 0.08 H Absolute Neuts (auto) 9.4 H Absolute Nucleated RBC 0.0 Nucleated RBC % 0.0 Sodium 134 L Potassium 4.1 Chloride 106 Carbon Dioxide 23 Anion Gap 5 L BUN 8 Creatinine 0.60 L Estim Creat Clear Calc 119 Estimated GFR > 60 Glucose 90 Uric Acid 5.8 Calcium 8.2 L Total Bilirubin 0.3 AST 22 ALT 14 Alkaline Phosphatase 154 H Total Protein 6.0 L Albumin 3.0 L Urine Color Yellow Urine Appearance Clear Urine pH 7.0 Ur Specific [place] 1.020 Urine Protein 2+ H Urine Glucose (UA) Negative Urine Ketones Negative Ur Blood (Man) Trace-intact Urine Nitrate Negative Urine Bilirubin Negative Urine Urobilinogen 0.2 Ur Leukocyte Esterase Negative Urine RBC 0-2 Urine WBC 0-3 Ur Squamous Epith Cells Few Ur Transition Epith Cell Rare U Random Total Protein Urine Creatinine Protein/Creat Ratio 2 08/10/22 11:01 WBC RBC Hgb Hct MCV MCH MCHC RDW Plt Count MPV Immature Gran % (Auto) Neut % (Auto) Lymph % (Auto) [place] % (Auto) Eos % (Auto) Baso % (Auto) Lymph # (Auto) [place] # (Auto) Eos # (Auto) Baso # (Auto) Abs Immat Gran (auto) Absolute Neuts (auto) Absolute Nucleated RBC Nucleated RBC % Sodium Potassium Chloride Carbon Dioxide Anion Gap BUN Creatinine Estim Creat Clear Calc Estimated GFR Glucose Uric Acid Calcium Total Bilirubin AST ALT Alkaline Phosphatase Total Protein Albumin Urine Color Urine Appearance Urine pH Ur Specific [place] Urine Protein Urine Glucose (UA) Urine Ketones Ur Blood (Man) Urine Nitrate Urine Bilirubin Urine Urobilinogen Ur Leukocyte Esterase Urine RBC Urine WBC Ur Squamous Epith Cells Ur Transition Epith Cell U Random Total Protein 97 Urine Creatinine 91.0 Protein/Creat Ratio 2 1.07 H OB - PN A/P Assessment and Plan (1) Placental abruption in third trimester: Code(s): O45.93 - Premature separation of placenta, unspecified, third trimester Status: Acute (2) Antepartum bleeding, third trimester: Code(s): O46.93 - Antepartum hemorrhage, unspecified, third trimester Status: Acute (3) Pre-eclampsia affecting childbirth: Code(s): O14.94 - Unspecified pre-eclampsia, complicating childbirth Status: Acute (4) Breech presentation: Code(s): O32.1XX0 - Maternal care for breech presentation, not applicable or unspecified Status: Acute Plan this patient is a 27-year-old 1 at 34 weeks and 3 days gestation who has a chronic placental abruption and now preeclampsia. Her bleeding has become more frequent and more voluminous. She is appreciated contractions and greater frequency. She developed some elevated blood pressures today. Her labs were evaluated. Her urine was evaluated. She has proteinuria based on a urine protein creatinine ratio of 1.0. We agreed to move forward with delivery. Based on the worsening of her overall condition. Worsening of her abruption symptoms and now the additional preeclampsia. in
[2022-08-10] MEDS: ceFAZolin 2 GM/D5W 50 ML 2 GM/50 ML BAG IVPB (13:41)
--- NOTE | 2022-08-10 14:57 | W.PM.PROC2 ---
Procedure Note - Detailed Date of Procedure 08/10/22 Pre-op Diagnosis Partial Abruption, malposition of the fetus, preeclampsia Post-op Diagnosis Same Procedure Performed Low-transverse section Surgeon Maria Dolores Cerda MD Anesthesia Spinal Indications bleeding, preeclampsia, abruption Findings Normal gestational maternal anatomy, average size infant for gestational age, modest Apgars, anterior placenta, transverse position, uterus was full of clots superiorly at the fundus and down around the cervix.. Description of Procedure The patient was taken the operating room. She was prepped and draped in dorsal supine position with a leftward tilt. This was done after spinal anesthetic was applied. A low-transverse skin incision was made and carried down till of the fascia with the knife. The fascial incision was made with the knife. The fascial incision was extended laterally with [place]o scissors. The fascia was tented upward superiorly and inferiorly the rectus muscles were dissected off bluntly. The rectus muscles were the midline. The preperitoneal fat and peritoneum were dissected open bluntly at the superior aspect of the rectus muscles. The peritoneal incision was extended superior and inferior with good position of bladder. The uterine incision was made with a scalpel down to the level of the amniotic cavity. The placenta had to be bluntly transect and The amniotic cavity was entered bluntly. the was transverse. It was difficult to rotate the infant a. The head could not be initially rotated in the opening of the uterus , nor could the buttock and thighs. The uterine incision was extended with blunt traction upward on the patient's left side. Manual exploration of the it into the uterus allowed a grasp of the head. The head was then moved distally towards the incision. In the the head eventually could be moved and be delivered as the Shoulder came in to the expanded incision. The was delivered. The cord was clamped and cut and the was handed off to waiting pediatric staff. The placenta was removed manually. The uterus was exteriorized. The uterus was cleared of all clots, debris and membranes. The uterus was closed in 0 Vicryl running lock fashion. The uterus was returned to the abdomen. The gutters were cleared of all clots and debris. The fascia was closed with 0 Vicryl running fashion. The subcutaneous tissue was irrigated pinpoint bleeders were cauterized. The skin was closed with subcuticular absorbable dayne. The skin incision line was covered with glue. The patient tolerated the procedure well. She has taken recovery room in stable condition. Sponge lap and needle counts were correct x2. Estimated Blood Loss 220 Urine Output 200 Complications No immediate complications Condition Stable Disposition PACU
[2022-08-10] MEDS: KETOROLAC 30 MG/ML VIAL (*BKC) IV PUSH (16:02)
[2022-08-10] MEDS: OXYTOCIN 30 UNITS/NS 500 ML 30 UNITS/500 ML BAG 125 UNITS IV CONT (16:04)
[2022-08-10] MEDS: MORPHINE SULFATE INJ (*CRX) 10 MG/ML AMP 2 MG IV PUSH ×3 (16:28→17:05)
--- NOTE | 2022-08-10 18:20 | OBPPTRN ---
1732-Patient transferred to post room #292 via stretcher. Support person present. Oriented to unit, room, information board, rooming in, admission packet and security measures. Patient verbalizes understanding.
[2022-08-10] MEDS: DEXTROSE 5%/0.45% SOD CHL 1,000 ML 125 ML IV CONT (19:00)
[2022-08-11] VITALS (7 sets, daily range): BP systolic 123–137; BP diastolic 69–94; PULSE 78–97; RESP 18; TEMP 36.8–37.8; O2SAT 100
[2022-08-11] MEDS: IBUPROFEN 600 MG TABLET PO ×4 (00:01→21:40)
[2022-08-11] MEDS: SIMETHICONE 80 MG TAB.CHEW PO ×5 (00:02→21:40)
[2022-08-11] MEDS: HYDROcodone/acetaminophen (*CRX) 5-325 MG TABLET 1 TAB PO (00:02)
[2022-08-11] MEDS: HYDROcodone/acetaminophen (*CRX) 10-325 MG TABLET 1 TAB PO ×5 (04:18→21:39)
[2022-08-11 05:45] LABS: Basophils Absolute Auto 0.1 K/mm3 (0.0-0.1); Basophils Percent Auto 0.4 % (0.2-1.2); Eosinophils Absolute Auto 0.1 K/mm3 (0-0.3); Eosinophils Percent Auto 0.4 % (0-4.4); Hematocrit 22.8 % (37.0-47.0); Hemoglobin 7.5 g/dL (12.0-15.0); Immature Granulocyte Absolute 0.08 K/mm3 (0.00-0.031); Immature Granulocyte Percent A 0.6 % (0-0.5); Lymphocytes Absolute Auto 1.29 K/mm3 (0.9-3.2); Lymphocytes Percent Auto 9.6 % (18.3-44.2); Mean Corpuscular HGB Conc 32.9 g/dl (32-36); Mean Corpuscular Hemoglobin 31.1 pg (26-34); Mean Corpuscular Volume 94.6 fl (80-100); Mean Platelet Volume 11.8 fl (7.4-10.4); Monocytes Absolute Auto 0.8 K/mm3 (0.1-0.6); Monocytes Percent Auto 5.8 % (2.6-8.5); Neutrophils Absolute Auto 11.1 K/mm3 (1.3-6.7); Neutrophils Percent Auto 83.2 % (45.5-73.1); Platelet Count Result 158 k/mm3 (150-375); Red Blood Count 2.41 M/mm3 (4.2-5.4); White Blood Count 13.4 K/mm3 (4.5-10.0)
--- NOTE | 2022-08-11 07:01 | PM.OBPNVD ---
OB - PN: Subj Subjective Date/time seen: 08/11/22 07:01 Patient comments: no complaints and pain well controlled baby status: doing well Narrative: POD 1 from primary CS. Doing well. Normal lochia. Eating, ambulating, meeks out. Baby doing great in Level 2, off all respiratory support and on D10. OB - PN: Obj Data Labs 08/11/22 04:01 08/10/22 11:01 Labs: Laboratory Results - last 24 hr 08/10/22 08/10/22 08/10/22 11:01 11:01 11:01 WBC 11.7 H RBC 3.36 L Hgb 11.0 L Hct 31.5 L MCV 93.8 MCH 32.7 MCHC 34.9 RDW 13.2 Plt Count 199 MPV 11.9 H Immature Gran % (Auto) 0.7 H Neut % (Auto) 80.2 H Lymph % (Auto) 12.6 L [place] % (Auto) 5.2 Eos % (Auto) 1.0 Baso % (Auto) 0.3 Lymph # (Auto) 1.47 [place] # (Auto) 0.6 Eos # (Auto) 0.1 Baso # (Auto) 0.0 Abs Immat Gran (auto) 0.08 H Absolute Neuts (auto) 9.4 H Absolute Nucleated RBC 0.0 Nucleated RBC % 0.0 Sodium 134 L Potassium 4.1 Chloride 106 Carbon Dioxide 23 Anion Gap 5 L BUN 8 Creatinine 0.60 L Estim Creat Clear Calc 119 Estimated GFR > 60 Glucose 90 Uric Acid 5.8 Calcium 8.2 L Total Bilirubin 0.3 AST 22 ALT 14 Alkaline Phosphatase 154 H Total Protein 6.0 L Albumin 3.0 L Urine Color Yellow Urine Appearance Clear Urine pH 7.0 Ur Specific [place] 1.020 Urine Protein 2+ H Urine Glucose (UA) Negative Urine Ketones Negative Ur Blood (Man) Trace-intact Urine Nitrate Negative Urine Bilirubin Negative Urine Urobilinogen 0.2 Ur Leukocyte Esterase Negative Urine RBC 0-2 Urine WBC 0-3 Ur Squamous Epith Cells Few Ur Transition Epith Cell Rare U Random Total Protein Urine Creatinine Protein/Creat Ratio 2 08/10/22 08/11/22 11:01 04:01 WBC 13.4 H RBC 2.41 L Hgb 7.5 L D Hct 22.8 L MCV 94.6 MCH 31.1 MCHC 32.9 RDW 13.0 Plt Count 158 MPV 11.8 H Immature Gran % (Auto) 0.6 H Neut % (Auto) 83.2 H Lymph % (Auto) 9.6 L [place] % (Auto) 5.8 Eos % (Auto) 0.4 Baso % (Auto) 0.4 Lymph # (Auto) 1.29 [place] # (Auto) 0.8 H Eos # (Auto) 0.1 Baso # (Auto) 0.1 Abs Immat Gran (auto) 0.08 H Absolute Neuts (auto) 11.1 H Absolute Nucleated RBC 0.0 Nucleated RBC % 0.0 Sodium Potassium Chloride Carbon Dioxide Anion Gap BUN Creatinine Estim Creat Clear Calc Estimated GFR Glucose Uric Acid Calcium Total Bilirubin AST ALT Alkaline Phosphatase Total Protein Albumin Urine Color Urine Appearance Urine pH Ur Specific [place] Urine Protein Urine Glucose (UA) Urine Ketones Ur Blood (Man) Urine Nitrate Urine Bilirubin Urine Urobilinogen Ur Leukocyte Esterase Urine RBC Urine WBC Ur Squamous Epith Cells Ur Transition Epith Cell U Random Total Protein 97 Urine Creatinine 91.0 Protein/Creat Ratio 2 1.07 H OB - PN A/P Assessment and Plan (1) Pre-eclampsia affecting childbirth: Code(s): O14.94 - Unspecified pre-eclampsia, complicating childbirth Status: Acute (2) Placental abruption in third trimester: Code(s): O45.93 - Premature separation of placenta, unspecified, third trimester Status: Acute (3) Anemia, blood loss: Code(s): D50.0 - Iron deficiency anemia secondary to blood loss (chronic) Status: Acute Plan day: 1 Plan: routine care Comments: BPs 130s/80-90s. denies PreE sx anemia- IV iron baby doing well otherwise routine post op care. Time Spent With Patient Time: Total time spent is greater than 50% in coordination of care (as documented) at patient's floor/unit and/or counseling patient: Exam Narrative: NAD abdomen soft, appropriately tender, incision bandaged Extremities nontender with 1+ edema
--- NOTE | 2022-08-11 09:14 | WPDANLDPN2 ---
Anes-Prog Note L&D Date/Time: 08/11/22 09:14 Comfortable throughout: section Neuraxial method: spinal Epidural/Spinal procedure site: tender Neuro status: Neuro function grossly intact. Cardiovascular status: normal Respiratory status: normal Airway patency: baseline Mental status: baseline Post-Op hydration status: normal Vital Signs: Last Vital Signs Temp 98.7 F 08/11/22 04:15 Pulse 78 08/11/22 04:15 Resp 18 08/11/22 04:15 BP 134/94 H 08/11/22 04:15 Pulse Ox 100 08/11/22 04:15 O2 Del Method Room Air 08/11/22 04:15 Pain score (VAS): 0 I/O: Intake & Output 08/10/22 08/11/22 08/11/22 23:59 07:59 15:59 Intake Total 1400 Output Total 1000 Balance 400 Post-procedural complaints: none Patient feedback: Patient satisfied with anesthetic care.
--- NOTE | 2022-08-11 09:14 | WPDANLDNPN2 ---
Anes-Prog Note L&D-Neuraxial Date/Time: 08/11/22 09:14 Neuraxial medications: intrathecal PF morphine Opiod-related complaints: none Patient feedback: Patient satisfied with post-operative pain management.
[2022-08-11] MEDS: IRON SUCROSE COMPLEX 200 MG in SODIUM CHLORIDE 0.9% IV 50 ML 120 MG IVPB (09:42)
--- NOTE | 2022-08-11 15:58 | PC.NURSE ---
[id number] Re-introductions were made as mother had completed the class on Sunday 08/05. Consulted with patient to assess needs related to since her plan was changed related to placenta abruption. Mother led the conversation with her experience feeding her so far and her of her 34 EGA . Mother works well with her with encouragement and education. Encouraged understanding of the benefits of skin to skin (unwrapping and placing vertically on her chest), keeping her warm, feeding on demand about every 8 times in 24 hours, pumping for milk production, limits to duration of feeding at this time, signs of adequate intake/output and how to record on the feeding sheet. Reviewed positioning and ear, shoulder, hip alignment, supporting the breast, asymmetrical latch (off-center), and leading with the chin with a big, open, wide gape. opens wide and gives mother a great attempt but doesn't maintain and sucks only on the tip of the nipple most of the times in the football position. latched optimally once and effectively sucked for a minute. was able to maintain latch without discomfort to mother. Nipple care reviewed with optimal latch and good positioning. Resources used to facilitate learning were used with the visual handouts/ tool. Mother voiced understanding of responsive feedings, stimulating with skin to skin with maintaining warmth to her infant, hand expressed colostrum, stimulating touch, talking to infant to encourage if it has been 2.5 -3 hours since the start of the last . The feeding plan is to attempt and practice for 10 minutes, pump and supplement with 22 calorie formula. Father of baby demonstrates understanding of paced bottle feeding and burping infant. Reported to the primary RN. [id number] Mother called RN into the room and questions were answered regarding working with infant on the risks and benefits of balancing and caring for the health of a 34 week old born infant. Infant is sleeping on mother's chest.
[2022-08-12] MEDS: HYDROcodone/acetaminophen (*CRX) 10-325 MG TABLET 1 TAB PO ×3 (01:29→08:42)
[2022-08-12] MEDS: SIMETHICONE 80 MG TAB.CHEW PO ×5 (01:29→21:31)
[2022-08-12] MEDS: IBUPROFEN 600 MG TABLET PO ×3 (05:11→21:31)
[2022-08-12 08:10] VITALS: BP 127/78; PULSE 96; RESP 18; TEMP 36.7; O2SAT 99
[2022-08-12] MEDS: IRON SUCROSE COMPLEX 200 MG in SODIUM CHLORIDE 0.9% IV 50 ML 120 MG IVPB (08:43)
[2022-08-12] MEDS: HYDROcodone/acetaminophen (*CRX) 5-325 MG TABLET 1 TAB PO ×2 (13:32→16:28)
[2022-08-12] MEDS: DOCUSATE SODIUM 100 MG CAPSULE PO ×2 (13:35→21:25)
--- NOTE | 2022-08-12 15:27 | PM.OBPNVD ---
OB - PN: Subj Subjective Date/time seen: 08/12/22 15:27 Patient comments: no complaints, pain well controlled, incisional pain, tolerating diet and flatus present OB - PN: Obj Data Labs 08/11/22 04:01 08/10/22 11:01 OB - PN A/P Plan day: 2 Plan: routine care Comments: POD#2 LTCS - no problems, Time Spent With Patient Time: Total time spent is greater than 50% in coordination of care (as documented) at patient's floor/unit and/or counseling patient: Exam Const: General: comfortable, no acute distress and alert Resp: Effort & Inspection: normal respiratory effort Auscultation: no crackles, no rales and no rhonchi Cardio: Rate: regular rate Heart sounds: no click, no murmurs and no rubs GI: Inspection: non-distended GI Palp: No Tenderness to palpation present (GI) Auscultation: normal bowel sounds Other: Incision - CDI Extrem: General: normal to inspection, no pedal edema and no calf tenderness
[2022-08-12 16:20] VITALS: BP 124/76; PULSE 97; RESP 18; TEMP 37.1; O2SAT 100
[2022-08-12 19:43] VITALS: BP 139/67; PULSE 101; RESP 18; TEMP 37; O2SAT 100
[2022-08-13] MEDS: HYDROcodone/acetaminophen (*CRX) 5-325 MG TABLET 1 TAB PO ×4 (03:00→20:09)
[2022-08-13] MEDS: IBUPROFEN 600 MG TABLET PO ×3 (03:00→20:09)
[2022-08-13] MEDS: SIMETHICONE 80 MG TAB.CHEW PO ×3 (03:00→15:06)
[2022-08-13 08:00] VITALS: BP 131/83; PULSE 112; PULSE 98; RESP 16; TEMP 36.8; O2SAT 100
[2022-08-13] MEDS: DOCUSATE SODIUM 100 MG CAPSULE PO ×2 (10:15→17:39)
--- NOTE | 2022-08-13 12:07 | PM.OBPNVD ---
OB - PN: Subj Subjective Date/time seen: 08/13/22 12:07 Patient comments: no complaints, pain well controlled, incisional pain, tolerating diet and flatus present OB - PN: Obj Data Labs 08/11/22 04:01 08/10/22 11:01 OB - PN A/P Plan day: 3 Plan: routine care and other Comments: Incision check in one week. Given precautions.To continue observation for anemia. Time Spent With Patient Time: Total time spent is greater than 50% in coordination of care (as documented) at patient's floor/unit and/or counseling patient: Exam Const: General: comfortable, no acute distress and alert Resp: Effort & Inspection: normal respiratory effort Auscultation: no crackles, no rales and no rhonchi Cardio: Rate: regular rate Heart sounds: no click, no murmurs and no rubs GI: Inspection: non-distended GI Palp: No Tenderness to palpation present (GI) Auscultation: normal bowel sounds Other: Incision - CDI Extrem: General: normal to inspection, no pedal edema and no calf tenderness
[2022-08-13 15:00] VITALS: BP 120/73; PULSE 98; RESP 16; TEMP 36.7; O2SAT 100
[2022-08-13 20:00] VITALS: BP 127/78; PULSE 117; RESP 16; TEMP 37.4; O2SAT 100
--- NOTE | 2022-08-13 22:00 | OBPPTRN ---
08-13-2022 at 2121 Patient transferred to post room #281 via wheelchair. Support person present. Oriented to unit, room, information board, rooming in, admission packet and security measures. Patient verbalizes understanding.
[2022-08-13 23:00] VITALS: BP 122/74; PULSE 101; RESP 16; TEMP 37.4; O2SAT 99
[2022-08-14 01:00] VITALS: TEMP 36.8
[2022-08-14] MEDS: IBUPROFEN 600 MG TABLET PO ×3 (01:59→14:26)
[2022-08-14] MEDS: SIMETHICONE 80 MG TAB.CHEW PO ×2 (01:59→07:56)
[2022-08-14] MEDS: HYDROcodone/acetaminophen (*CRX) 5-325 MG TABLET 1 TAB PO ×2 (01:59→14:26)
[2022-08-14 07:56] VITALS: BP 134/85; PULSE 105; RESP 18; TEMP 37.2; O2SAT 100
[2022-08-14] MEDS: DOCUSATE SODIUM 100 MG CAPSULE PO (07:56)
--- NOTE | 2022-08-14 08:07 | PM.OBPNVD ---
OB - PN: Subj Subjective Date/time seen: 08/14/22 08:07 Patient comments: no complaints, pain well controlled and tolerating diet [place] baby status: doing well Narrative: Will stay in no care bed. Baby Blair doing great so far. OB - PN: Obj Data Labs 08/11/22 04:01 08/10/22 11:01 OB - PN A/P Plan day: 4 Plan: routine care and discharge home Comments: DC instructions given will stay no care FU 1 and 4 weeks Time Spent With Patient Time: Total time spent is greater than 50% in coordination of care (as documented) at patient's floor/unit and/or counseling patient: Exam Narrative: NAD abdomen soft, appropriately tender, incision CDI Extremities nontender with 2+ edema
--- NOTE | 2022-08-14 08:12 | PM.OBDSVD ---
DS: Admitting Diagnosis Discharge Date 08/14/22 Admitting Diagnosis IUP 34w, vaginal bleeding DS: Discharge Diagnosis Discharge Diagnosis (1) delivery delivered: Code(s): O82 - Encounter for delivery without indication Status: Acute (2) Anemia, blood loss: Code(s): D50.0 - Iron deficiency anemia secondary to blood loss (chronic) Status: Acute (3) Breech presentation: Code(s): O32.1XX0 - Maternal care for breech presentation, not applicable or unspecified Status: Acute (4) Pre-eclampsia affecting childbirth: Code(s): O14.94 - Unspecified pre-eclampsia, complicating childbirth Status: Acute (5) Placental abruption in third trimester: Code(s): O45.93 - Premature separation of placenta, unspecified, third trimester Status: Acute OB - DS: Summary Hospital Course Hospital Course: Nandini was admitted at 34w for moderate vaginal bleeding. On US she was found to have a placental abruption. She had already received Celestone. She was managed expectantly for 2 days. She started having increased bleeding and tenderness and also developed preEclampsia and it was determined she needed to be delivered. She underwent a primary LTCS for delivery of a breech baby at 34.5 weeks. Her course was uncomplicated except by anemia for which she received IV iron. OB Procedures : Ultrasound OB Procedures Intrapartum: OB Procedures: : None Peripartum Data Procedures: Procedures Operation Date: 08/10/22 13:00 Actual Procedure Side Surgeon p Section Maria Dolores Cerda MD complications: none Status at Discharge Functional status at discharge: independent ambulation Time Spent with Patient Time attestation: Total time spent providing and/or coordinating discharge services: Exam Narrative: NAD abdomen soft, appropriately tender, incision CDI DS: Data Data Completed and Pending Pending studies at discharge: Pending at discharge 08/10/22 14:17 Surgical [PTH] Routine Discharge Plan Discharge Attending physician on discharge: Antonia Urban Discharging Clinician: Antonia Urban Anticipated Discharge Date/Time: 08/14/22 17:00 Patient Disposition: Home, Self-Care Activity: may shower and pelvic rest Diet: regular Patient Instructions: Antibiotic Form Stand Alone Forms: General Discharge Information Follow-up/Referrals: Antonia Urban MD [Physician] - 1 Week Discharge Medications: New hydrocodone-acetaminophen 5-325 mg Tablet 1 tablet PO Q4-5H PRN (Reason: Moderate Pain (4-6)) Qty: 30 0RF docusate sodium 100 mg Capsule 100 mg PO BID PRN (Reason: Constipation) Qty: 60 0RF ibuprofen 600 mg Tablet 600 mg PO Q6H PRN (Reason: Cramping) Qty: 60 0RF Continued omeprazole 10 mg Capsule,Delayed Release(Dr/Ec) 10 mg PO DAILY Slow Fe 142 mg (45 mg iron) Tablet Extended Release 142 mg PO DAILY PNV [id number]-ferrous fumarate-FA [] 28 mg iron- 800 mcg Tablet 1 tablet PO DAILY Discontinued docusate sodium [Colace] 100 mg Capsule 100 mg PO BID Date of admission: 08/08/22 15:42 Primary Care Provider: Cayetano,Rachel Baer Admitting Provider: Antonia Urban Attending physician on admission: Antonia Urban Condition: Stable
[2022-08-14 08:45] VITALS: TEMP 37.2
[2022-08-14 12:05] VITALS: BP 145/91; PULSE 105; RESP 16; TEMP 37; O2SAT 100
[2022-08-14 13:00] VITALS: BP 139/94; PULSE 96
[2022-08-14 14:39] VITALS: BP 139/94; PULSE 96
[2022-08-16 10:51] VITALS: BP 134/92; PULSE 92; RESP 20; TEMP 37.1; O2SAT 99
== END 2022-08-14 16:55 | disposition home or self-care (01) | DRG 786 ==
LOC: ANHOBPP 08-08 15:45 → ANHOB2 08-10 17:36
PROVIDERS: Obstetrics & Gynecology; Admitting Provider Obstetrics & Gynecology; PCP Family Medicine; Visit Provider Obstetrics & Gynecology
PROC: 10D00Z1 Extraction of Products of Conception, Low, Open Approach (ICD-10-PCS; CPT 59514; principal; 2022-08-10 13:00)
DX: O32.1XX0 Maternal care for breech presentation, not applicable or unspecified (principal); O45.93 Premature separation of placenta, unspecified, third trimester; O14.94 Unspecified pre-eclampsia, complicating childbirth; O99.02 Anemia complicating childbirth; D50.9 Iron deficiency anemia, unspecified; Z3A.34 34 weeks gestation of pregnancy; Z37.0 Single live birth
CPT/HCPCS: 36415; 80053; 81001; 82570; 84156; 84550; 85025; 85027; 86850; 86900; 86901; 87086; 88307; A9270; J0131; J0690; J1756; J1885; J2270; J2274; J2590; J7120

== ENCOUNTER 2022-08-21 12:25 | Outpatient (CLI) | payer OTHER, SELFPAY ==
--- NOTE | ~2022-08-21 | US_ITS ---
EXAMINATION: US soft tissue pelvic DATE: 08/21/2022 12:55 INDICATION: Subcutaneous hematoma TECHNIQUE: Multiple grayscale and Doppler ultrasound images of the region of concern along a recent c esarean section wound at the anterior pelvis were obtained. COMPARISON: None FINDINGS: 9.9 x 2.8 cm hypoechoic and anechoic likely hematoma underlying the section scar. No surroun ding hyperemia or internal vascular flow on color Doppler. No additional fluid collection deep to the region of bruising cephalad to the section. IMPRESSION: 1. 9.9 x 2.8 cm complex fluid collection deep to the section wound likely representing a pos toperative hematoma. Differential would include abscess in the appropriate clinical setting although there is no surrounding hyperemia to elevate suspicion. Reviewed, dictated and finalized at location [facility] IMPRESSION: 1. 9.9 x 2.8 cm complex fluid collection deep to the section wound lik evans representing a postoperative hematoma. Differential would include abscess i n the appropriate clinical setting although there is no surrounding hyperemia t o elevate suspicion.
== END 2022-08-21 12:26 | disposition home or self-care (01) ==
PROVIDERS: PCP Family Medicine; Visit Provider Obstetrics & Gynecology
DX: L76.32 Postprocedural hematoma of skin and subcutaneous tissue following other procedure (principal)
CPT/HCPCS: 76857

== ENCOUNTER 2023-06-14 17:36 | Outpatient (RCR) | payer BC, SELFPAY ==
[2023-06-12 17:58] LABS: Beta HCG Quantitative 189.19 mIU/ML
== END 2023-09-10 23:59 | disposition home or self-care (01) ==
LOC: ANHLAB 17:36
PROVIDERS: PCP Family Medicine; Visit Provider Obstetrics & Gynecology
DX: N91.2 Amenorrhea, unspecified (principal)
CPT/HCPCS: 36415; 84702